=== PATIENT | female | born 1965 | race Asian ===

== ENCOUNTER 2019-01-07 15:33 | Emergency (ER) | payer SELFPAY ==
[2019-01-07] MEDS ORDERED: FLEET MINERAL OIL PR ONE (16:20)
--- NOTE | 2019-01-07 16:24 | Emergency Department Report ---
<JODEE AGUILERA - Last Filed: 01/07/19 18:02> ED Abdominal Pain HPI - General Chief Complaint: Abdominal Pain Stated Complaint: ABDOMINAL PAIN Time Seen by Provider: 01/07/19 16:15 Source: patient Mode of arrival: Stretcher Limitations: No Limitations - History of Present Illness Initial Comments: Patient is a 53-year-old female, morbidly obese. Patient presented to the ER stating that she did not have a bowel movement for the last 2 weeks. Patient stated that she had history of constipation before. Patient denied any current abdominal pain, nausea or vomiting. Patient also denied any fever or chills. MD Complaint: other - Related Data Previous Rx's Medication Instructions Recorded Last Taken Type Docusate Sodium [Colace] 100 mg PO BID PRN #60 capsule 01/07/19 Unknown Rx Lactulose 10 gm PO DAILY PRN #150 ml 01/07/19 Unknown Rx Allergies Allergy/AdvReac Type Severity Reaction Status Date / Time No Known Allergies Allergy Unverified 01/07/19 16:26 ED Review of Systems Comment: All other systems reviewed and negative Constitutional: denies: chills, fever Respiratory: denies: cough, shortness of breath, SOB with exertion, SOB at rest Cardiovascular: denies: chest pain, palpitations Gastrointestinal: constipation. denies: abdominal pain, nausea, vomiting, diarrhea, hematemesis, melena Musculoskeletal: denies: back pain Neurological: denies: headache, weakness, numbness, paresthesias, confusion ED Past Medical Hx - Social History Smoking Status: Current Every Day Smoker Substance Use Type: None - Medications Home Medications: Home Medications Medication Instructions Recorded Confirmed Last Taken Type Docusate Sodium [Colace] 100 mg PO BID PRN #60 capsule 01/07/19 Unknown Rx Lactulose 10 gm PO DAILY PRN #150 ml 01/07/19 Unknown Rx ED Physical Exam - General Limitations: No Limitations General appearance: alert, in no apparent distress - Head Head exam: Present: atraumatic, normocephalic, normal inspection - Eye Eye exam: Present: normal appearance - ENT ENT exam: Present: normal exam, normal orophraynx, mucous membranes moist - Neck Neck exam: Present: normal inspection, full ROM. Absent: tenderness, meningismus, lymphadenopathy, thyromegaly - Respiratory Respiratory exam: Present: normal lung sounds bilaterally - Cardiovascular Cardiovascular Exam: Present: regular rate, normal rhythm, normal heart sounds - GI/Abdominal GI/Abdominal exam: Present: soft, normal bowel sounds. Absent: distended, tenderness, guarding, rebound, rigid, organomegaly, mass, bruit, pulsatile mass, hernia - Extremities Exam Extremities exam: Present: normal inspection, full ROM, normal capillary refill - Back Exam Back exam: Present: normal inspection, full ROM. Absent: CVA tenderness (R), CVA tenderness (L) - Neurological Exam Neurological exam: Present: alert, oriented X3, CN II-XII intact - Psychiatric Psychiatric exam: Present: normal mood - Skin Skin exam: Present: warm, intact, normal color ED Medical Decision Making - Lab Data Result diagrams: 01/07/19 16:40 01/07/19 16:40 ED Disposition Clinical Impression: Abdominal pain, Constipation, Severely overweight Disposition: DC-01 TO HOME OR SELFCARE Is pt being admited?: No Condition: Stable Instructions: Constipation (ED), High Fiber Diet (ED), Abdominal Pain (ED), Obesity (ED) Additional Instructions: Patient is to increase her fluid intake and advance her diet as tolerated. I recommend for her to drink warm teas or warm water with lemon after taking her medications. She can take Ibuprofen or Tylenol for pain. Follow up with GI and or Primary Care provider. Prescriptions: Docusate Sodium [Colace] 100 mg PO BID PRN #60 capsule PRN Reason: Constipation Lactulose 10 gm PO DAILY PRN #150 ml PRN Reason: Constipation Referrals: PRIMARY CARE, [Primary Care Provider] - 3-5 Days [facility] [Provider Group] - 3-5 Days <LEEROY MCKINNEY - Last Filed: 01/07/19 22:04> ED Review of Systems ROS: Stated complaint: ABDOMINAL PAIN Other details as noted in HPI ED Course Vital Signs 01/07/19 01/07/19 16:08 20:00 Temperature 98.9 F 98.2 F Pulse Rate 97 H 89 Respiratory 16 20 Rate Blood Pressure 117/60 Blood Pressure 128/79 [Left] O2 Sat by Pulse 100 98 Oximetry - Reevaluation(s) Reevaluation #1: 01/07/19 19:57 To x-rays they informed the patient was having trouble lying flat. Discuss with patient the hold of her discharge with needing to have an x-ray of her abdomen chest. Patient reports that she is able to lay flat for just a few seconds. Discuss with x-ray. Discuss with x-ray they will to the study. ED Medical Decision Making - Lab Data Result diagrams: 01/07/19 16:40 01/07/19 16:40 - Radiology Data Radiology results: report reviewed Patient: OTILIO WINSTON MR#: [id number] : 1965 Acct:[id number] Age/Sex: 53 / F ADM Date: 01/07/19 Loc: ED Attending Dr: Ordering Physician: JUHI CUEVAS Date of Service: 01/07/19 Procedure(s): XR abdomen 1V ap Accession Number(s): [id number] cc: JUHI CUEVAS Fluoro Time In Minutes: ABDOMEN 1 VIEW(S) INDICATION / CLINICAL INFORMATION: Diffuse abdominal pain COMPARISON: None available. FINDINGS: TUBES / LINES: None. BOWEL GAS PATTERN: No significant abnormality. FREE AIR / EXTRALUMINAL GAS: None seen. ADDITIONAL FINDINGS: Prior cholecystectomy. IMPRESSION: 1. No significant abnormality. Moderate stool burden. Signer Name: Aj Hernadez MD Signed: 01/07/2019 9:18 PM Workstation Name: [id number] Transcribed By: BC Dictated By: Aj Hernadez MD Electronically Authenticated By: Aj Hernadez MD Signed Date/Time: 01/07/192117 Patient: OTILIO WINSTON MR#: [id number] : 1965 Acct:[id number] Age/Sex: 53 / F ADM Date: 01/07/19 Loc: ED Attending Dr: Ordering Physician: JUHI CUEVAS Date of Service: 01/07/19 Procedure(s): XR chest 1V ap Accession Number(s): [id number] cc: JUHI CUEVAS Fluoro Time In Minutes: CHEST 1 VIEW INDICATION / CLINICAL INFORMATION: abd pain constipation. COMPARISON: None available. FINDINGS: SUPPORT DEVICES: None. HEART / MEDIASTINUM: No significant abnormality. LUNGS / PLEURA: No significant pulmonary or pleural abnormality. No pneumothorax. ADDITIONAL FINDINGS: No significant additional findings. IMPRESSION: 1. No acute findings. Signer Name: Aj Hernadez MD Signed: 01/07/2019 9:18 PM Workstation Name: [id number] Transcribed By: BC Dictated By: Aj Hernadez MD Electronically Authenticated By: Aj Hernadez MD Signed Date/Time: 01/07/192117 DD/ 17 TD/TT: DD/ 16 TD/TT: Critical care attestation.: If time is entered above; I have spent that time in minutes in the direct care of this critically ill patient, excluding procedure time. ED Disposition Is pt being admited?: No Does the pt Need Aspirin: No
[2019-01-07 16:56] LABS: Basophils # (Auto) 0.1 K/mm3 (0.0-0.1); Eosinophils # (Auto) 0.2 K/mm3 (0.0-0.4); Eosinophils % (Auto) 1.9 % (0.0-4.3); Hematocrit 44.9 % (30.3-42.9); Hemoglobin 14.7 gm/dl (10.1-14.3); Lymphocytes # (Auto) 1.7 K/mm3 (1.2-5.4); Lymphocytes % (Auto) 18.2 % (13.4-35.0); Mean Corpuscular HGB Conc 33 % (30-34); Mean Corpuscular Volume 92 fl (79-97); Monocytes # (Auto) 0.7 K/mm3 (0.0-0.8); Monocytes % (Auto) 7.6 % (0.0-7.3); Platelet Count 225 K/mm3 (140-440); Red Cell Distribution Width 16.5 % (13.2-15.2)
[2019-01-07 17:17] LABS: Alanine Aminotransferase 19 units/L (7-56); Albumin 4.2 g/dL (3.9-5); BUN/Creatinine Ratio 21; Blood Urea Nitrogen 30 mg/dL (7-17); Calcium 9.1 mg/dL (8.4-10.2); Hemolysis Index 16
[2019-01-07 17:21] LABS: Bilirubin,Direct < 0.2 mg/dL (0-0.2)
[2019-01-07] MEDS ORDERED: ZOFRAN IV ONE (17:22)
[2019-01-07] MEDS ORDERED: MORPHINE IV ONE (17:22)
[2019-01-07] MEDS ORDERED: CEPHULAC PR PRN (17:23)
[2019-01-07] MEDS ORDERED: MORPHINE ONE (17:26)
[2019-01-07] MEDS ORDERED: ZOFRAN ONE (17:26)
--- NOTE | 2019-01-07 21:22 | XRay Report ---
ABDOMEN 1 VIEW(S) INDICATION / CLINICAL INFORMATION: Diffuse abdominal pain COMPARISON: None available. FINDINGS: TUBES / LINES: None. BOWEL GAS PATTERN: No significant abnormality. FREE AIR / EXTRALUMINAL GAS: None seen. ADDITIONAL FINDINGS: Prior cholecystectomy. IMPRESSION: 1. No significant abnormality. Moderate stool burden. Signer Name: Aj Hernadez MD Signed: 01/07/2019 9:18 PM Workstation Name: [id number]
--- NOTE | 2019-01-07 21:22 | XRay Report ---
CHEST 1 VIEW INDICATION / CLINICAL INFORMATION: abd pain constipation. COMPARISON: None available. FINDINGS: SUPPORT DEVICES: None. HEART / MEDIASTINUM: No significant abnormality. LUNGS / PLEURA: No significant pulmonary or pleural abnormality. No pneumothorax. ADDITIONAL FINDINGS: No significant additional findings. IMPRESSION: 1. No acute findings. Signer Name: Aj Hernadez MD Signed: 01/07/2019 9:18 PM Workstation Name: [id number]
[2019-01-07] MEDS ORDERED: IBUPROFEN PO ONE (21:38)
[2019-01-07 23:07] VITALS: BP 128/78
== END 2019-01-07 23:07 | disposition home or self-care (01) ==
LOC: ED 15:33
DX: K59.00 Constipation, unspecified (principal); E66.3 Overweight; F17.200 Nicotine dependence, unspecified, uncomplicated
CPT/HCPCS: 36415; 71045; 74018; 80048; 80076; 85025; 96374; 96375; 99284; J2270; J2405